=== PATIENT | female | born 1965 | race American Indian/Alaskan Native ===

== ENCOUNTER 2016-06-01 23:44 | Emergency (ER) | payer SELFPAY ==
[2016-06-02] MEDS ORDERED: BOOSTRIX IM ONE (00:34)
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
[2016-06-02 01:15] VITALS: BP 172/88
== END 2016-06-02 01:10 | disposition home or self-care (01) ==
LOC: ED 23:44
DX: S00.81XA Abrasion of other part of head, initial encounter (principal); V49.69XA Unspecified car occupant injured in collision with other motor vehicles in traffic accident, initial encounter; Y93.89 Activity, other specified; Y99.8 Other external cause status; Y92.89 Other specified places as the place of occurrence of the external cause
CPT/HCPCS: 90471; 90715; 99283